=== PATIENT | female | born 1955 | race Caucasian/White ===

== ENCOUNTER 2020-05-13 12:42 | Outpatient (CLI) | payer OTHER, SELFPAY ==
--- NOTE | ~2020-05-13 | CT_ITS ---
EXAMINATION: CT abdomen pelvis wo con DATE: 05/13/2020 13:25 INDICATION: Right lower quadrant abdominal pain for 3 weeks. History of diverticulosis. TECHNIQUE: Computed tomography (CT) of the abdomen and pelvis was performed without intravenous contr ast. Automated exposure control and iterative reconstruction technique were employed. Exam dose: 133 0.96 mGy-cm total exam DLP. COMPARISON: 07/19/2014 CT abdomen pelvis FINDINGS: The lung bases are clear. Normal heart size. No pericardial or pleural effusion. Very small sliding hiatal hernia. The liver, gallbladder, bile ducts, pancreas, pancreatic duct and spleen are unremarkable. Normal morphology of the adrenal glands. Hypoattenuating lesion at lower pole of right kidney measures approximately 12 mm versus 9 mm on 07/04 Exophytic up to 5.5 cm upper pole right renal cyst, increased from 3.5 cm size on 07/19/2014. 2.6 cm anterior upper pole renal cyst, increased in size from 1.2 cm on 07/19/2014. Suggestion of add itional 2 or 3 smaller left renal cysts. No urinary tract calculus or hydroureteronephrosis. The urinary bladder, uterus and adnexal areas are unremarkable. Normal caliber of the abdominal aorta. No intraperitoneal or retroperitoneal or pelvic mass lesion or adenopathy or ascites. There are numerous diverticula of the left and right colon; no CT evidence of diverticulitis. Normal appendix. No evidence of appendicitis. Included skeletal structures are unremarkable. IMPRESSION: Very small sliding hiatal hernia Bilateral renal cysts, increased in size since 07/19/2014 Diverticulosis of left and right colon; no CT diverticulitis Normal appendix Reviewed, dictated and finalized at [facility]. Reviewed, dictated and finalized at location A.
== END 2020-05-13 12:43 | disposition home or self-care (01) ==
LOC: ANHIMG 12:45
PROVIDERS: PCP Family Medicine; Visit Provider Family Medicine
DX: R10.31 Right lower quadrant pain (principal); R19.8 Other specified symptoms and signs involving the digestive system and abdomen; K57.90 Diverticulosis of intestine, part unspecified, without perforation or abscess without bleeding; N28.1 Cyst of kidney, acquired
CPT/HCPCS: 74176

== ENCOUNTER 2021-04-27 09:40 | Emergency (ER) | payer OTHER, SELFPAY ==
--- NOTE | ~2021-04-27 | CT_ITS ---
EXAMINATION: CT BRAIN W/O DATE: 04/27/2021 11:12 INDICATION: Status post fall. Headache. TECHNIQUE: Computed tomography (CT) of the head was performed without intravenous contrast. The dose- length product was 605.33 mGy-cm. The mA was adjusted according to patient size. Iterative reconstruc tion technique was employed. COMPARISON: CT dated 04/03/2015 FINDINGS: Normal brain parenchymal volume for age. Normal alejandre-white differentiation. No acute intrac ranial hemorrhage, infarction, mass or mass effect. There are scattered mild periventricular and subc ortical white matter changes, most likely related to small vessel ischemic disease (microangiopathy). No depressed skull fractures. No ventriculomegaly or midline shift. Midline sagittal images demonstrate a normal corpus callosum, c raniovertebral junction and sella turcica. Basilar cisterns are patent. Paranasal sinuses and mastoids are pneumatized. No depressed skull fractures. IMPRESSION: 1. No acute intracranial abnormality. Reviewed, dictated and finalized at location [facility].
--- NOTE | ~2021-04-27 | XR_ITS ---
EXAMINATION: XR chest 2V 04/27/2021 11:22 INDICATION: Left-sided chest pain PROCEDURE: 2 view chest COMPARISON: Comparison to multiple prior studies sequentially, with oldest reviewed study dated 11/2004. FINDINGS: The lungs are clear. The cardiomediastinal silhouette is within normal limits. There are no pleural effusions. There is no pneumothorax suspected. IMPRESSION: 1: NO ACUTE CARDIOPULMONARY DISEASE. Reviewed, dictated and finalized at location A.
--- NOTE | ~2021-04-27 | XR_ITS ---
XR knee RT 3V 04/27/2021 11:22 INDICATION: Right knee pain PROCEDURE: 3 views right knee COMPARISON: No prior studies for comparison. FINDINGS: Fracture, dislocation or subluxation is not identified. No significant joint effusion. The soft tissues appear within normal limits. No foreign bodies are identified. IMPRESSION: 1: NO ACUTE BONE OR JOINT ABNORMALITY IDENTIFIED. Reviewed, dictated and finalized at location A.
[2021-04-27 10:14] VITALS: BP 144/93; PULSE 81; RESP 18; TEMP 36.8; O2SAT 96
--- NOTE | 2021-04-27 12:15 | ED.FALL ---
HPI - Fall General Chief Complaint: Fall Stated Complaint: Fall Time Seen by Provider: 04/27/21 10:30 History of Present Illness HPI Narrative: Patient presents after a mechanical fall 2 days ago. Patient reports she was walking around her house when she tripped over a garden closing up against the wall. She fell to the ground and had the end of the car into ran into her ribs and she fell on her right knee and struck her head. She denies any loss of consciousness. She has been using rest ice compression elevation at home however her pain got progressively worse so she wanted to come in for evaluation. She reports she has a headache is achy, constant. She also reports left-sided chest pain is achy, constant, worse with deep inspiration, no radiation. She also reports right knee pain worse with walking around. Denies any focal numbness or weakness she denies any changes in vision or hearing. Related Data Allergies Allergy/AdvReac Type Severity Reaction Status Date / Time bacitracin Allergy Severe hives Verified 04/27/21 10:21 neomycin Allergy Severe hives Verified 04/27/21 10:21 polymyxin B Allergy Severe hives Verified 04/27/21 10:21 pravastatin Allergy Unknown Nausea Verified 04/27/21 10:21 Sulfa (Sulfonamide Allergy Unknown doesn't Verified 04/27/21 10:21 Antibiotics) remember reaction Review of Systems Review of Systems: CONSTITUTIONAL: Denies fever, chills, or sweats. EYES: Denies visual changes, redness, or discharge. ENT: Denies rhinorrhea, congestion, sore throat, or otalgia. CARDIOVASCULAR: Denies palpitations, or edema. RESPIRATORY: Denies cough or dyspnea. GASTROINTESTINAL: Denies abdominal pain, nausea, vomiting, or diarrhea. GENITOURINARY: Denies dysuria or hematuria. SKIN: Denies rash or itching. MUSCULOSKELETAL: Denies back pain, or myalgia. NEUROLOGIC: Denies numbness, dizziness, or weakness. PSYCHIATRIC: Denies anxiety or depression. All systems reviewed & are unremarkable except as noted in HPI and below PMFSH Past Medical History Medical History (Updated 04/27/21 @ 12:20 by Héctor Wylie MD) Cor pulmonale (chronic) Cyst of kidney, acquired Esophageal reflux FH: colon polyps Heart failure, unspecified History of DVT (deep vein thrombosis) History of pulmonary embolism 2014,2018 Normal colonoscopy 2018( diverticulosis). fedder/ repeat 10 years Family History Family History Mother Family history of mental disorder Family history of malignant neoplasm of breast in first degree relative Family history of schizophrenia Colon polyp Hypertension Father Family history of cardiovascular disease Grandparent Family history of malignant neoplasm Other Family history of elevated blood lipids Family history of malignant neoplasm of breast Social History Social History Smoking status: Never smoker Alcohol intake: never Exam Narrative: GENERAL: Well-appearing, well-nourished, and in no acute distress. HEAD: Normocephalic, atraumatic. EYES: PERRLA and EOMI. ENT: Nares clear, no rhinorrhea or epistaxis. Mucous membranes moist. NECK: Supple. No masses. No JVD CHEST: Clear to auscultation. No respiratory distress. No wheezes rales or rhonchi. Moderate tenderness on the left chest wall HEART: Regular rate and rhythm. No murmur heard. Normal peripheral pulses. ABDOMEN: Soft, nontender, nondistended, normal active bowel sounds. EXTREMITIES: Normal range of motion. Ecchymosis noted on the right knee with mild edema no focal bony tenderness SKIN: Warm, dry, no rash. NEURO: No focal deficits. Alert and oriented x3. PSYCH: Normal mood and affect. Course Reevaluation(s) Reevaluation #1: Patient resting comfortably imaging reviewed with patient. Patient comfortable with outpatient monitoring Date: 04/27/21 Time: 12:17 Vital Signs Vital signs: Vital Signs Temperature 36.8 C
[2021-04-27 12:30] VITALS: BP 133/83; PULSE 60; RESP 18; O2SAT 99
[2021-04-27 12:55] VITALS: BP 130/86; PULSE 80; RESP 16; O2SAT 99
== END 2021-04-27 12:56 | disposition home or self-care (01) ==
PROVIDERS: Emergency Provider Emergency Medicine; PCP Family Medicine
DX: S09.90XA Unspecified injury of head, initial encounter (principal); S20.212A Contusion of left front wall of thorax, initial encounter; R07.9 Chest pain, unspecified; M25.561 Pain in right knee; W01.0XXA Fall on same level from slipping, tripping and stumbling without subsequent striking against object, initial encounter
CPT/HCPCS: 70450; 71046; 73562; 99284

== ENCOUNTER 2022-03-20 09:00 | Outpatient (CLI) | payer OTHER, SELFPAY ==
--- NOTE | ~2022-03-20 | MM_ITS ---
EXAMINATION: MM screening mercedes BI w nixon HISTORY: Screening mammogram TECHNIQUE: Craniocaudal and mediolateral oblique 3-D tomosynthesis images were obtained and synthetic 2-D images were generated. CAD analysis was submitted and interpreted. COMPARISON: 06/03/2019, 04/17/2018, 08/14/2016 bilateral screening mammogram examinations BREAST PARENCHYMAL COMPOSITION: There are scattered areas of fibroglandular density. FINDINGS: Scattered benign calcifications. There is no evidence of suspicious mass, calcification, or architectural distortion to suggest malignancy in either breast. There has been no suspicious interv al change. IMPRESSION: 1. No mammographic evidence of malignancy. 2. Recommend routine screening mammography in one year. BI-RADS Category 2: Benign finding(s). Reviewed, dictated and finalized at location A.
== END 2022-03-20 09:01 | disposition home or self-care (01) ==
PROVIDERS: PCP Family Medicine; Visit Provider Family Medicine
DX: Z12.31 Encounter for screening mammogram for malignant neoplasm of breast (principal)
CPT/HCPCS: 77063; 77067

== ENCOUNTER 2023-04-08 15:07 | Outpatient (CLI) | payer MEDICARE, SELFPAY ==
--- NOTE | ~2023-04-08 | DEXA_ITS ---
Bone Density Report Name: JANET GARCIA Age: 67 Sex: Female Ethnicity: White Date of : 1955 Indication: postmenopausal; screening for osteoporosis; Referring Provider: LILA ANGUIANO Study: Bone densitometry was performed. Exam Date: April 08, 2023 Accession number: [id number] Bone Density: Region BMD T-score Z-score Classification AP Spine(L1-L4) 0.932 -1.0 0.8 Normal Femoral Neck (Left) 0.681 -1.5 0.0 Osteopenia Total Hip (Left) 0.813 -1.1 0.2 Osteopenia Femoral Neck (Right) 0.657 -1.7 -0.2 Osteopenia Total Hip (Right) 0.780 -1.3 -0.1 Osteopenia Total Hip Mean 0.796 -1.2 0.1 Osteopenia World Health Organization criteria for BMD impression classify patients as: Normal (T-score at or above -1.0), Osteopenia (T-score between -1.0 and -2.5), or Osteoporosis (T-score at or below -2.5). 10-year Fracture Risk(1): Major Osteoporotic Fracture 8.9% Hip Fracture 1.1% Reported Risk Factors: [place] (), Neck BMD=0.657, BMI=36.3 (1) FRAX(R) Version 3.08. Fracture probability calculated for an untreated patient. Fracture probability may be lower if the patient has received treatment. Clinical Information Provided by Patient: Patient maximum height was 64.25 Menopause Age: 52 No regular weight bearing exercise Drinks caffeinated beverages Onset of menses at age 15 Number of children 0 Impression: The patient has low bone mass, based on the Right Femoral Neck T-score. The patient has an estimated ten-year risk of hip fracture of 1.1% and an estimated ten-year risk of major fracture of 8.9%, based on the WHO FRAX algorithm. Discussion: BONE DENSITY IS LOW AT ONE OR MORE SKELETAL SITES. This patient's lowest T-score is low at one or more skeletal sites. It meets the World Health Organization's (WHO) criteria for ?low bone mass? (T-score between -1.0 and -2.5). The patient's 10-year risk of fracture as calculated by FRAX is less than the threshold where pharmacological therapy is recommended by the National Osteoporosis Foundation (NOF). However, all treatment decisions require clinical judgment and consideration of individual patient factors, including patient preferences, comorbidities, previous drug use, risk factors not captured in the FRAX model (e.g., frailty, falls, vitamin D deficiency, increased bone turnover, interval significant decline in bone density) and possible under or overestimation of fracture risk by FRAX. The patient should follow a healthful lifestyle (good nutrition with adequate calcium and vitamin D, and appropriate weight-bearing exercise). Follow-Up: Consider repeating this study in 2 to 3 years to reassess this patient's status, or sooner if there is some new clinical indication. Reported by: HERNAN on 04/08/2023 3:55:00 PM.
--- NOTE | ~2023-04-08 | MM_ITS ---
EXAMINATION: MM screening mercedes BI w nixon HISTORY: Screening mammogram TECHNIQUE: Craniocaudal and mediolateral oblique 3-D tomosynthesis images were obtained and synthetic 2-D images were generated. CAD analysis was submitted and interpreted. COMPARISON: 03/20/2022, 06/03/2019 bilateral screening mammogram examinations BREAST PARENCHYMAL COMPOSITION: There are scattered areas of fibroglandular density. FINDINGS: Scattered bilateral benign calcifications are again present. There is no evidence of suspic ious mass, calcification, or architectural distortion to suggest malignancy in either breast. There h as been no suspicious interval change. IMPRESSION: 1. No mammographic evidence of malignancy. 2. Recommend routine screening mammography in one year. BI-RADS Category 2: Benign finding(s). Reviewed, dictated and finalized at location A.
== END 2023-04-08 15:08 | disposition home or self-care (01) ==
PROVIDERS: PCP Family Medicine; Visit Provider Physician Assistant
DX: Z12.31 Encounter for screening mammogram for malignant neoplasm of breast (principal); Z78.0 Asymptomatic menopausal state; M85.852 Other specified disorders of bone density and structure, left thigh; M85.851 Other specified disorders of bone density and structure, right thigh
CPT/HCPCS: 77063; 77067; 77080

== ENCOUNTER → 2023-05-08 11:01 | Outpatient (CLI) | payer MEDICARE, SELFPAY ==
--- NOTE | ~2023-05-08 | XR_ITS ---
XR finger 1st LT min 2V DATE: 05/08/2023 11:14 INDICATION: Left thumb pain. Injury in January. TECHNIQUE: 4 views COMPARISON: None FINDINGS: There is mild osteoarthritis at the first carpometacarpal joint. No fracture, dislocation, periosteal reaction or bone destruction is detected. IMPRESSION: Mild first carpal metacarpal osteoarthritis Reviewed, dictated and finalized at location [facility].
== END ==
PROVIDERS: PCP Family Medicine; Visit Provider Family Medicine
DX: M79.645 Pain in left finger(s) (principal); M19.042 Primary osteoarthritis, left hand
CPT/HCPCS: 73140

== ENCOUNTER 2023-07-03 13:45 | Outpatient (RCR) | payer MEDICARE, SELFPAY ==
--- NOTE | 2023-05-15 14:30 | OTOPEVAL1 ---
Assessment and note entered by Kip Dinero, LISA/Fanta, CHT Evaluation Information Assessment Status Evaluation Diagnosis de Quervain's tenosynovitis Subjective Information Pt reports initial injury back in January when a metal ball hit the dorsum/radial hand and wrist. She was having persistent pain, so decided to get it examined. X-rays negative. Pain with gross gripping and pinching. Has been having difficulties with household tasks, favoring the right hand and avoiding using the left hand/thumb. Difficulties with doing buttons. 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 Reported Pain Level Pain Score 0: Self Report Additional Pain Score Comments No pain at rest. Pain can get up to 5/10 at worst . Assessment OT Clinical Summary Patient referred to outpatient OT with dx of de Quervain's. She has been experiencing thumb pain since she experienced some trauma to this area a few months ago. Her symptoms are gross thumb soreness, hard to pinpoint exactly the cause. She does have tightness with Oracio's. Overall she is very guarded with using the thumb. Skilled OT indicated to maximize functional left hand use for ADLs. Plan of Care Interventions Therapeutic Exercise,Manual Therapy,Therapeutic Activities,Ultrasound,Paraffin OT Services Indicated Yes Treatment Frequency and 1x/week for 4 weeks Duration These treatments will address the objective and functional deficits as defined above. The patient will be advanced safely and appropriately in order for the patient to progress towards his/her prior level of function. Additional exercises will be introduced and as well as a comprehensive home exercise program upon discharge, if needed, ?to ensure carryover of functional gains achieved in the clinic. This treatment plan has been reviewed and agreement upon by the patient.
--- NOTE | 2023-05-15 14:30 | OPREHPOC ---
Outpatient Therapy Plan of Care This is a Multidisciplinary Plan of Care that may contain components documented by all disciplines (PT, OT, and ST.) OT Problem 1 OT Problem #1 Knowledge Deficit OT Goal 1 Goal Patient to be independent with instructed materials. OT Problem 2 OT Problem #2 Pain OT Goal 1 Goal Patient to report pain to 2/10 or less at worst OT Problem 3 OT Problem #3 Impaired Strength OT Goal 1 Goal Increase left housing officer strength to 40 lbs. OT Goal 2 Goal Increase left lateral and palmar pinch strength to 2 lbs.
--- NOTE | 2023-07-03 14:19 | OTOPDC ---
Assessment and note entered by Kip Dinero, LISA/Fanta, CHT Discharge Notification 07/03/23 OT Clinical Summary Patient referred to OT with dx of left de Quervain 's tenosynovitis. She progressed to having no pain and was working on strengthening HEP. She has not returned to therapy since 06/03/23 and will be discharged at this time.
== END 2023-07-03 16:12 | disposition home or self-care (01) ==
LOC: ANHGOSHOT 13:45
PROVIDERS: PCP Family Medicine; Visit Provider Family Medicine
DX: M65.4 Radial styloid tenosynovitis [de Quervain] (principal)
CPT/HCPCS: 97018; 97110; 97140; 97165

== ENCOUNTER → 2023-09-18 09:16 | Outpatient (CLI) | payer MEDICARE, SELFPAY ==
--- NOTE | ~2023-09-18 | MMUS_ITS ---
EXAMINATION: MM diagnostic mercedes BI w nixon, US breast BI limited HISTORY: Palpable lumps of the right breast at the 3:00 location near the nipple in the left breast a t the 9:00 location near the nipple. TECHNIQUE: Craniocaudal, mediolateral, and mediolateral oblique 3-D tomosynthesis images of the breas ts were performed and synthetic 2-D images were generated. CAD analysis was submitted and interpreted . High resolution limited bilateral breast ultrasound was performed. COMPARISON: 04/08/2023, 03/20/2022, 06/03/2019 FINDINGS: MAMMOGRAPHIC FINDINGS: Left breast: There is a chronic 5 mm mass of the slightly inner left breast at the 9:00 location near the nipple. No suspicious interval change is identified. Right breast: No suspicious mass, calcification, or architectural distortion are identified to sugges t malignancy. There has been no suspicious interval change. No mammographic correlate is identified f or the reported palpable abnormality of the right breast. ULTRASOUND: Left breast: There is a 5 mm x 3 mm oval, circumscribed, parallel, hypoechoic mass with no posterior features or internal vascularity at the 9:00 location 1 cm from the nipple. The area of palpable conc la. Right breast: No suspicious cystic or solid mass is identified in the area of the palpable abnormalit y. IMPRESSION: 1. Probably benign left breast mass near the nipple and no mammographic or sonographic correlate for the reported palpable right breast lump. 2. Recommend 6 month follow-up left diagnostic mammogram and ultrasound for left breast lump and cont inued clinical follow-up for the right breast lump. BI-RADS category 3, probably benign findings. Reviewed, dictated and finalized at location A. ROLLER IMPRESSION: 1. Probably benign left breast mass near the nipple and no mammographic or sono graphic correlate for the reported palpable right breast lump. 2. Recommend 6 month follow-up left diagnostic mammogram and ultrasound for lef t breast lump and continued clinical follow-up for the right breast lump. BI-RADS category 3, probably benign findings.
== END ==
PROVIDERS: PCP Family Medicine; Visit Provider Physician Assistant
DX: N64.59 Other signs and symptoms in breast (principal); R92.8 Other abnormal and inconclusive findings on diagnostic imaging of breast
CPT/HCPCS: 76642; 77062; 77066; G0279

== ENCOUNTER 2024-04-20 09:17 | Outpatient (CLI) | payer MEDICARE, SELFPAY ==
--- NOTE | ~2024-04-20 | MMUS_ITS ---
EXAMINATION: MM diagnostic mercedes LT w nixon, US breast LT limited HISTORY: Six-month follow-up left breast lesion TECHNIQUE: 3-D tomosynthesis images of the left breast were performed and synthetic 2-D images were g enerated. CAD analysis was submitted and interpreted. High resolution limited left breast ultrasound was performed. COMPARISON: 09/18/2023, 04/08/2023 BREAST PARENCHYMAL COMPOSITION:Not Dense. There are scattered areas of fibroglandular density. FINDINGS: MAMMOGRAPHIC FINDINGS: Parenchymal pattern of the left breast is unchanged. 2 small nodular opacities at the lower, inner le ft breast are unchanged. Stable benign calcifications, especially the lower, inner left breast. Stabl e benign lymph node at the upper, outer left breast. No suspicious abnormality seen in the left breas t. ULTRASOUND: At the 9:00 position left breast, near the nipple, there are 2 adjacent subcentimeter hypoechoic mass es, measuring up to 6 mm in maximum diameter, relatively well-circumscribed, with posterior through t ransmission. These overall wider than tall. IMPRESSION: 2 adjacent subcentimeter hypoechoic masses, possibly focally dilated duct, to a position left breast . Findings are not increased in size from prior exam, somewhat more conspicuous and better delineated as compared to prior exam. These remain probably benign. Additional six-month follow-up ultrasound r ecommended to reassess. BI-RADS category 3, probably benign findings. Reviewed, dictated and finalized at location . IMPRESSION: 2 adjacent subcentimeter hypoechoic masses, possibly focally dilated duct, to a position left breast. Findings are not increased in size from prior exam, cathy ewhat more conspicuous and better delineated as compared to prior exam. These r emain probably benign. Additional six-month follow-up ultrasound recommended to reassess. BI-RADS category 3, probably benign findings.
== END 2024-04-20 09:18 | disposition home or self-care (01) ==
LOC: MICIMG 09:18
PROVIDERS: PCP Family Medicine; Visit Provider Student in an Organized Health Care Education/Training Program
DX: N63.0 Unspecified lump in unspecified breast (principal); R92.8 Other abnormal and inconclusive findings on diagnostic imaging of breast
CPT/HCPCS: 76642; 77061; 77065; G0279

== ENCOUNTER 2024-06-24 13:41 | Outpatient (CLI) | payer MEDICARE, SELFPAY ==
--- NOTE | ~2024-06-24 | CT_ITS ---
EXAMINATION: CT abdomen pelvis wo con DATE: 06/24/2024 13:54 INDICATION: Right lower quadrant abdominal pain. TECHNIQUE: Computed tomography (CT) of the abdomen and pelvis was performed without intravenous contr ast. Automated exposure control and iterative reconstruction technique were employed. The dose-length product was 1051.37 mGy-cm. COMPARISON: None FINDINGS: Minimal dependent atelectasis in the bilateral lower lobes. Heart size normal. No pericardial or pleu ral effusion. Very small sliding-type hernia. Liver, gallbladder, spleen, pancreas and bilateral adre nal glands are normal. Bilateral renal cysts the largest at the upper pole the right kidney measuring 7.6 cm and the next largest at the upper pole the left kidney measuring 4.2 cm. There is extensive c olonic diverticulosis with a descending and sigmoid colon predominance and without adjacent inflammat ory change to suggest diverticulitis. Small bowel and appendix are normal. Bladder, anteverted uteru s and bilateral adnexa are unremarkable. No free intraperitoneal gas or fluid. No pathologically enla rged abdominal or pelvic lymphadenopathy. Small fat-containing umbilical hernia. Mild lumbar and lowe r thoracic spondylosis. IMPRESSION: 1. No acute intra-abdominal/pelvic process. 2. Very small sliding-type hiatal hernia. 3. Diverticulosis. Reviewed, dictated and finalized at location B. 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
== END 2024-06-24 13:42 | disposition home or self-care (01) ==
PROVIDERS: PCP Family Medicine; Visit Provider Family Medicine
DX: R10.31 Right lower quadrant pain (principal); K57.30 Diverticulosis of large intestine without perforation or abscess without bleeding; K44.9 Diaphragmatic hernia without obstruction or gangrene
CPT/HCPCS: 74176

== ENCOUNTER 2024-07-16 12:48 | Outpatient (CLI) | payer MEDICARE, SELFPAY ==
--- NOTE | 2024-07-16 12:50 | ECHO_ITS ---
Patient Info Name: Naa Peacock Age: 68 years : 1955 Gender: Female Ht: 66 in Wt: 221 lbs BSA: 2.20 m2 HR: 70 bpm BP: 140 / 89 mmHg Heart Rhythm: Sinus Rhythm Technical Quality: Good Exam Date: 07/16/2024 1:45 PM Exam Location: Echo Lab Patient Status: Outpatient Admit Date: 07/16/2024 Staff Ordering Physician: Frederic Aldana APRN Sole Buffer: Hilda Dunbar RDCS Attending Provider: Frederic Aldana APRN Referring Physician: Katya ROMANO; Exam Type: CA echo doppler color flow Study Info Indications R06.02 - Shortness of breath Complete two-dimensional, color flow and Doppler transthoracic echocardiogram is performed. Summary 1. Complete two-dimensional, color flow and Doppler transthoracic echocardiogram is performed. 2. Left ventricular chamber dimension is normal. 3. Left ventricular systolic function is normal, estimated at 60-65%. 4. The left ventricular diastolic function is grade II diastolic dysfunction. 5. E/e' 6 is not elevated. 6. There is mild aortic valve sclerosis. 7. There is trace mitral valve regurgitation. 8. There is trace tricuspid valve regurgitation. 9. No pulmonary hypertension, estimated pulmonary arterial systolic pressure is 21 mmHg. Left Ventricle E/e' 6 is not elevated. Left ventricular chamber dimension is normal. Left ventricular systolic function is normal, estimated at 60-65%. The left ventricular diastolic function is grade II diastolic dysfunction. Right Ventricle Right ventricular systolic function is normal and with normal TAPSE 2.1 cm. Right ventricular chamber dimension is normal. Left Atria Left atrial chamber dimension is normal. Right Atria Right atrial chamber dimension is normal. Aortic Valve The aortic valve is trileaflet. There is mild aortic valve sclerosis. There is no aortic valve stenosis. There is no aortic valve regurgitation. Pulmonic Valve There is no pulmonic regurgitation. Mitral Valve There is no mitral valve stenosis. There is trace mitral valve regurgitation. Tricuspid Valve There is trace tricuspid valve regurgitation. No pulmonary hypertension, estimated pulmonary arterial systolic pressure is 21 mmHg. Pericardium/Pleural There is no pericardial effusion. Inferior Vena Cava Normal inferior vena cava with >50% collapse upon inspiration consistent with normal right atrial pressure, 5 mmHg. Aorta The aortic root size at the sinus of Valsalva is normal. Left Ventricular Outflow Tract Name Value Normal LVOT 2D LVOT Diameter 2.0 cm LVOT Doppler LVOT Peak Gradient 6 mmHg LVOT Mean Gradient 3 mmHg LVOT VTI 25 cm LVOT VTI/AV VTI Ratio 0.7 LVOT Stroke Volume 80 ml LVOT CO 5.4 l/min LVOT CI 2.5 l/min/m2 Pulmonic Valve Name Value Normal RVOT Doppler RVOT Peak Gradient 3 mmHg PV Doppler PV Peak Gradient 4 mmHg Mitral Valve Name Value Normal MV Doppler MV Decel Bosque 264 cm/s2 MV PHT 65 ms MV Area (PHT) 3.4 cm2 4.0-5.0 MV Diastolic Function MV E Peak Velocity 59 cm/s MV A Peak Velocity 57 cm/s MV E/A 1.0 MV Decel Time 224 ms MV Annular TDI MV E/e' (Septal) 7.1 <=8.0 MV E/e' (Lateral) 5.7 <=8.0 MV E/e' (Average) 6.4 Tricuspid Valve Name Value Normal TV Regurgitation Doppler TR Peak Velocity 197 cm/s TR Peak Gradient 10 mmHg Estimated PAP/RSVP RA Pressure 5 mmHg <=5 PA Systolic Pressure 21 mmHg <36 RV Systolic Pressure 21 mmHg <36 Aorta Name Value Normal Ascending Aorta Ao Root Diameter (MM) 3.3 cm Ao Root Diam Index (MM) 1.5 cm/m2 Aortic Valve Name Value Normal AV Doppler AV Peak Velocity 161 cm/s AV Peak Gradient 10 mmHg AV Mean Gradient 6 mmHg AV VTI 35 cm AV Area (Cont Eq VTI) 2.3 cm2 >=3.0 AV Area (Cont Eq John) 2.5 cm2 AV Regurgitation 2D LVOT Area 3.2 cm2 Ventricles Name Value Normal LV Dimensions 2D/MM IVS Diastolic Thickness (2D) 1.0 cm 0.6-1.0 LVID Diastole (2D) 3.3 cm 3.8-5.2 LVIW Diastolic Thickness (2D) 0.9 cm 0.6-0.9 LVID Systole (2D) 2.2 cm 2.2-3.5 LVOT Diameter 2.0 cm LV Mass (2D Cubed) 92.90 g 67.00-162.00 LV Mass Index (2D Cubed) 42 g/m2 43-95 Relative Wall Thickness (2D) 0.56 LV Fractional Shortening/Ejection Fraction 2D/MM LV Fractional Shortening (2D) 33 % 27-45 LV EF (2D Teicholz) 63 % 54-74 LV Diastolic Volume (4C MOD) 66 ml LV EF (4C MOD) 75 % LV Diastolic Volume (2C MOD) 54 ml LV EF (2C MOD) 72 % LV Diastolic Volume (BP MOD) 61 ml 46-106 LV Diastolic Volume Index (BP MOD) 28 ml/m2 29-61 LV Systolic Volume (BP MOD) 16 ml 14-42 LV Systolic Volume Index (BP MOD) 7 ml/m2 8-24 LV EF (BP MOD) 74 % 54-74 LV Diastolic Length (4C) 8.2 cm LV Systolic Length (4C) 6.0 cm LV Stroke Volume (4C MOD) 50 ml Atria Name Value Normal LA Dimensions LA Dimension (MM) 4.0 cm 2.7-3.8 LA Volume (4C A-L) 34 ml LA Volume (BP A-L) 36 ml RA Dimensions RA Area (4C) 17.6 cm2 <=18.0 Report Signatures
--- NOTE | 2024-07-19 19:19 | P.PCNPFT_ITS ---
PFT Procedure Performed PFT Procedure Performed Spirometry with Pre/Post Bronchodilator Plethysmography (Lung Vol) Diffusing Cap (DLCO) Flow Vol Loop PFT Interpretation DOS: 07/16/2024 REQUESTING: Frederic Aldana APRN REASON FOR TESTING: Shortness of breath PULMONARY FUNCTION TESTS Results are reliable and reproducible. Repeatability of spirometry FEV1 maneuver pre and post bronchodilator is Grade A. Spirometry: The pre-bronchodilator FEV1 is 3.07 L, 123%, normal. The pre- bronchodilator FVC is 3.75 L, 117%, normal. The FEV1/FVC ratio is 82%. After bronchodilator, the FEV1 is 3.08 L, 123%, no change. The post-bronchodilator FVC is 3.63 L, 113%, -3%. The FEV1/FVC ratio is 85%. Lung volumes: The total lung capacity is 6.04 L, 112%. The residual volume is 2.27 L, 103%. The RV/TLC is 38 per. FRC is 2.47 L, 80%. Airway resistance is normal. Diffusion: DLCO is 25, 115%. The DLCO/VA is 4.23, 99%. Flow volume loop: The flow volume loop is normal. . IMPRESSION: Normal spirometry, no response to bronchodilator, normal lung volumes, normal diffusion. Lack of response to bronchodilator should not preclude use if clinically indicated. No prior studies to compare. Tereza Baugh MD
== END 2024-07-16 12:49 | disposition home or self-care (01) ==
PROVIDERS: PCP Family Medicine; Visit Provider Student in an Organized Health Care Education/Training Program
DX: R06.02 Shortness of breath (principal)
CPT/HCPCS: 93306; 94060; 94726; 94729

== ENCOUNTER 2024-10-21 09:54 | Outpatient (CLI) | payer MEDICARE, SELFPAY ==
--- NOTE | ~2024-10-21 | US_ITS ---
US breast LT limited 10/21/2024 10:10 Indication: Follow-up probable benign left breast masses Procedure: High-resolution Limited ultrasound of the left breast Comparison: 04/20/2024 Findings: There are 2 adjacent hypoechoic 4 mm masses without significant change from prior examinati on line for differences of technique. There is no internal vascularity or significant posterior featu res. Impression: 1: Stable likely benign hypoechoic 4 mm masses in the left breast at 9:00, 1 cm from the nipple. BI-RADS CATEGORY 3-PROBABLY BENIGN FINDING RECOMMENDATION: Six-month follow-up diagnostic bilateral mammogram and Limited left breast ultrasound recommended. Reviewed, dictated and finalized at location B. Impression: 1: Stable likely benign hypoechoic 4 mm masses in the left breast at 9:00, 1 cm from the nipple. BI-RADS CATEGORY 3-PROBABLY BENIGN FINDING RECOMMENDATION: Six-month follow-up diagnostic bilateral mammogram and Limited left breast ultrasound recommended.
== END 2024-10-21 09:55 | disposition home or self-care (01) ==
LOC: MICIMG 09:57
PROVIDERS: PCP Family Medicine; Visit Provider Student in an Organized Health Care Education/Training Program
DX: R92.8 Other abnormal and inconclusive findings on diagnostic imaging of breast (principal)
CPT/HCPCS: 76642

== ENCOUNTER 2025-06-07 08:13 | Outpatient (CLI) | payer MEDICARE, SELFPAY ==
--- NOTE | ~2025-06-07 | US_ITS ---
RIGHT MAMMOGRAM FINDINGS: The focal asymmetry of concern in the lateral central at middle third within the right breast persisted as a mass containing several foci of calcifications. Ultrasound was performed for further evaluation. RIGHT BREAST ULTRASOUND FINDINGS: Targeted evaluation of lateral central right breast was completed. There is a 0.6 x 0.6 x 0.4 cm solid hypoechoic mass with internal vascularity and irregular margins at 9:00, 4 cm from the nipple location. The lesion correlates to the area of mammographic finding. IMPRESSION: 1. Suspicious right breast mass at 9:00 location that correlates to mammography finding. Recommend biopsy. 2. Probable benign left breast finding is unchanged RECOMMENDATION: 1. Ultrasound-guided core needle biopsy right breast mass at 9:00 location. 2. Continued left breast surveillance with 6 month follow-up left breast ultrasound. BI-RADS 4, SUSPICIOUS Reviewed, dictated and finalized at location C. LEAD
--- NOTE | ~2025-06-07 | MMUS_ITS ---
EXAMINATION: MM diagnostic mercedes BI w nixon, US breast LT limited INDICATION: 69-year old female; BI-RADS 3, short-term follow-up probably benign left breast findings. COMPARISON: 04/20/2024 through 06/03/2019 TECHNIQUE: Digital breast tomosynthesis bilateral True lateral, CC and MLO views with spot compression views of the LEFT breast were obtained with computer-aided detection to assist in interpretation of the study. MAMMOGRAM FINDINGS: There are scattered areas of fibroglandular density. There is a focal asymmetry containing several foci of calcifications seen in the lateral central in middle third of the right breast. No other suspicious mass, calcification or architectural distortion to suggest malignancy in the left breast. LEFT BREAST ULTRASOUND FINDINGS: Targeted evaluation of the area of concern was completed. 0.3 x 0.7 x 0.3 cm cluster of cysts at 9:00 location 1 cm from the nipple redemonstrated is Unchanged. IMPRESSION: 1. Incomplete evaluation of right breast focal asymmetry. This lesion was identified after the patient left the department. 2. Probable Benign LEFT breast finding is unchanged. RECOMMENDATION: Right diagnostic mammography with appropriate spot compression views and correlate to right breast ultrasound. Continue left breast surveillance with 6 month follow-up left breast ultrasound. BI-RADS Category 0: Incomplete: Needs additional imaging evaluation. Reviewed, dictated and finalized at location C. MIC ARTIST IMPRESSION: 1. Incomplete evaluation of right breast focal asymmetry. This lesion was ident ified after the patient left the department. 2. Probable Benign LEFT breast finding is unchanged. RECOMMENDATION: Right diagnostic mammography with appropriate spot compression views and correl ate to right breast ultrasound. Continue left breast surveillance with 6 month follow-up left breast ultrasound . BI-RADS Category 0: Incomplete: Needs additional imaging evaluation.
== END 2025-06-07 08:14 | disposition home or self-care (01) ==
LOC: MICIMG 08:14
PROVIDERS: PCP Family Medicine; Visit Provider Family Medicine
DX: R92.8 Other abnormal and inconclusive findings on diagnostic imaging of breast (principal)
CPT/HCPCS: 76642; 77062; 77066; G0279

== ENCOUNTER 2025-06-08 01:00 | Outpatient (CLI) | payer MEDICARE, SELFPAY ==
--- NOTE | ~2025-06-08 | US_ITS ---
RIGHT MAMMOGRAM FINDINGS: The focal asymmetry of concern in the lateral central at middle third within the right breast persisted as a mass containing several foci of calcifications. Ultrasound was performed for further evaluation. RIGHT BREAST ULTRASOUND FINDINGS: Targeted evaluation of lateral central right breast was completed. There is a 0.6 x 0.6 x 0.4 cm solid hypoechoic mass with internal vascularity and irregular margins at 9:00, 4 cm from the nipple location. The lesion correlates to the area of mammographic finding. IMPRESSION: 1. Suspicious right breast mass at 9:00 location that correlates to mammography finding. Recommend biopsy. 2. Probable benign left breast finding is unchanged RECOMMENDATION: 1. Ultrasound-guided core needle biopsy right breast mass at 9:00 location. 2. Continued left breast surveillance with 6 month follow-up left breast ultrasound. BI-RADS 4, SUSPICIOUS Reviewed, dictated and finalized at location C. ING LOT CHAUFFEUR IMPRESSION: 1. Suspicious right breast mass at 9:00 location that correlates to mammography finding. Recommend biopsy. 2. Probable benign left breast finding is unchanged RECOMMENDATION: 1. Ultrasound-guided core needle biopsy right breast mass at 9:00 location. 2. Continued left breast surveillance with 6 month follow-up left breast ultras ound. BI-RADS 4, SUSPICIOUS
== END 2025-06-08 01:01 ==
LOC: MICIMG 06-20 12:42
PROVIDERS: PCP Family Medicine; Visit Provider Family Medicine
DX: R92.8 Other abnormal and inconclusive findings on diagnostic imaging of breast (principal)
CPT/HCPCS: 76642

== ENCOUNTER 2025-06-20 09:17 | Outpatient (CLI) | payer MEDICARE, SELFPAY ==
--- NOTE | ~2025-06-20 | MMUS_ITS ---
PROCEDURE: US breast biopsy RT w image, MM post biopsy diagnostic RT CLINICAL HISTORY: 69-year-old female with suspicious right breast mass at 9:00 location presents for ultrasound-guided core needle biopsy procedure. COMPARISON: 06/07/2025 Following informed consent including risks, benefits, and possible complications, the patient was brought to the ultrasound suite. A time-out procedure was performed. A preliminary ultrasound of the right breast was performed, redemonstrating the targeted hypoechoic mass at 9:00, 4 cm FN.. The patient was prepped and draped in the usual sterile fashion. 1% lidocaine was instilled into the subcutaneous tissues. 1% lidocaine without epinephrine was injected into the deep tissues just inferior to the lesion. Approximately 15cc lidocaine was administered. A small skin margarita was made. Multiple core samples were obtained with a 13-gauge vacuum assisted biopsy needle. A post biopsy metal marker was placed at the biopsy site. Postprocedural mammogram of the right breast in craniocaudal and mediolateral projections reveal the post biopsy metal marker in good position. The patient tolerated the procedure well and was without immediate postprocedural complications. IMPRESSION: Successful ultrasound guided biopsy of right breast mass. A post biopsy metal marker was placed at the biopsy site, which is seen on postprocedural mammogram. The patient tolerated the procedure well without immediate postprocedure complications. The patient was given postprocedural instructions and sent home in stable condition. Pathology report pending. Reviewed, dictated and finalized at location B. IX DRIER TENDER IMPRESSION: Successful ultrasound guided biopsy of right breast mass. A post bi opsy metal marker was placed at the biopsy site, which is seen on postprocedura l mammogram. The patient tolerated the procedure well without immediate postprocedure compli cations. The patient was given postprocedural instructions and sent home in sta ble condition. Pathology report pending.
--- NOTE | 2025-06-20 10:35 | S_PTH ---
PATIENT: Naa Hadley LOC: [facility] U#:[id number] AGE/SX: 69/F ROOM: RE06/20/[address]: Noreen Mireles MD : 1955 BED: DIS: 06/20/2025 SPEC #: [id number] RECD: 06/20/25 11:14 STATUS: JOSSUE CASSIDY #: [id number] STACEY: 06/20/25 10:[address]: Noreen Mireles DEPT: [facility] Surgical RECD BY: Petr Bryant Tissues: A - Breast Biopsy Procedures: P63 Hematoxylin and Eosin Stain E-Cadherin Gross and Microscopic Level 4 ER-60 AR-60 MIB-60 HER 2-60 CK 5
== END 2025-06-20 09:18 | disposition home or self-care (01) ==
PROVIDERS: PCP Family Medicine; Visit Provider Family Medicine
DX: R92.8 Other abnormal and inconclusive findings on diagnostic imaging of breast (principal)
CPT/HCPCS: 19083; 77065; 88305; 88342; 88360; A4648

== ENCOUNTER 2025-07-05 09:03 | Outpatient (CLI) | payer MEDICARE, SELFPAY ==
--- NOTE | ~2025-07-05 | MM_ITS ---
PROCEDURE(S): Magseed placement, right breast x 2 INDICATION(S): DCIS COMPARISON(S): Studies dating back to 2023 BREAST PARENCHYMAL COMPOSITION: Dense: The breasts are heterogeneously dense TECHNIQUE/FINDINGS: The decision was made to bracket the lesion. Informed consent was obtained. Under sterile conditions, 1% lidocaine was injected as local anesthetic. With mammographic-guidance, a Magseed device is place in/adjacent to the finding/biopsy marker in question. A second Magseed device was placed in the same manner to bracket the lesion. Postprocedural imaging demonstrates the Magseed to lie in the expected location. No complications occurred. The patient tolerated the procedure well. IMPRESSION: Status post successful preoperative Magseed device placement x 2. Reviewed, dictated and finalized at location B. [employer]
--- NOTE | ~2025-07-05 | MM_ITS ---
PROCEDURE(S): Magseed placement, right breast x 2 INDICATION(S): DCIS COMPARISON(S): Studies dating back to 2023 BREAST PARENCHYMAL COMPOSITION: Dense: The breasts are heterogeneously dense TECHNIQUE/FINDINGS: The decision was made to bracket the lesion. Informed consent was obtained. Under sterile conditions, 1% lidocaine was injected as local anesthetic. With mammographic-guidance, a Magseed device is place in/adjacent to the finding/biopsy marker in question. A second Magseed device was placed in the same manner to bracket the lesion. Postprocedural imaging demonstrates the Magseed to lie in the expected location. No complications occurred. The patient tolerated the procedure well. IMPRESSION: Status post successful preoperative Magseed device placement x 2. Reviewed, dictated and finalized at location B. 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
--- OUTSIDE RECORDS SUMMARY | 2025-07-05 09:25 | XMS_ITS | Encounter Summary ---
Author Organization [facility] Address [address] [place] [address] Care Team Providers Care Hard Candy Spinner Name Role Phone Provider, Abstract Primary Care Provider Unavail able Encounter Details Date Type Department Care Team (Late st Contact Info) Description 12/27/1999 Outpatient Historical [facility] Santi Lockett Social History Tobacco Use Types Packs/Day Years Used Date Smoking Tobacco: Never Assessed Comments Unknown Sex and Gender Information Value Date Recorded Sex Assigned at Not on file Legal Sex Female 4:30 AM [employer] Gender Identity Not on file Sexual Orientation Not on file documented as of this encounter Plan of Treatment Not on file documented as of this encounter Visit Diagnoses Not on filedocumented in this encounter Care Teams Hard Candy Spinner Relationship Specialty Start Date End Date Provider, Abstract NO ADDRESS ON FILE PCP - General 12/11/18 documented as of this encounter
--- OUTSIDE RECORDS SUMMARY | 2025-07-05 09:25 | XMS_ITS | Clinical Summary ---
Author Organization [facility] Address [address] [place] [address] Care Team Providers Care Gas Blender Name Role Phone Provider, Abstract Primary Care Provider Unavail able Allergies Active Allergy Reactions Criticality Noted Date Comments Amoxicillin Hives High 12/11/2018 Iuliz-Ycxfh-Bfocxpb-Pramoxine Rash Low 2018 Sulfur Unknown 12/11/2018 Medications atorvastatin (LIPITOR) 40 mg tablet Take 40 mg by mouth daily. 2 9 Active buPROPion HCl (WELLBUTRIN XL) 300 mg Extended Release 24 hour tablet Take 300 mg by mouth daily. 9 Active FLUoxetine (PROzac) 20 mg tablet Take 20 mg by mouth daily. 1 9 Active omeprazole (PriLOSEC) 40 mg Capsule, Delayed Release(E.C.) Take 40 mg by mouth daily. 9 Active XARELTO 10 mg Tablet Take 10 mg by mouth daily. 9 Active omeprazole (PriLOSEC) 40 mg Capsule, Delayed Release(E.C.) Take 1 Capsule (40 mg) by mouth daily. 90 Capsule 1 05/06/2022 5:22 PM CDT 2 Active ciprofloxacin HCl (CIPRO) 500 mg tablet Take 1 Tablet (500 mg) by mouth every 8 hours. 40 Tablet 2 Active metroNIDAZOLE (FLAGYL) 500 mg tablet Take 1 Tablet (500 mg) by mouth every 8 hours. Alcohol consumption should be avoided during treatment and for 24 hours after last dose. 30 Tablet 2 Active busPIRone (BUSPAR) 5 mg tablet Take 2 Tablets (10 mg) by mouth daily at bedtime. 60 Tablet 5 07/17/2023 2:00 PM MAIL ROOM CLERK 3 Active buPROPion HCL (WELLBUTRIN XL) 300 mg Extended Release 24 hour tablet TAKE ONE TABLET BY MOUTH EVERY MORNING 90 Tablet 3 06/11/2025 11:40 AM MAIL ROOM CLERK 4 Active rivaroxaban (XARELTO) 10 mg Tablet Take 1 Tablet (10 mg) by mouth daily. 90 Tablet 1 03/07/2025 5:45 PM CDT 5 Active atorvastatin (LIPITOR) 40 mg tablet TAKE ONE TABLET BY MOUTH ONCE DAILY 90 Tablet 1 04/13/2025 3:28 PM CDT 5 Active FLUoxetine (PROzac) 20 mg tablet Take 2 Tablets (40 mg) by mouth daily. 180 Tablet 1 03/08/2025 10:45 AM CDT 5 Active busPIRone (BUSPAR) 5 mg tablet Take 2 Tablets (10 mg) by mouth daily at bedtime. 60 Tablet 5 06/11/2025 11:40 AM MAIL ROOM CLERK 5 Active rivaroxaban (Xarelto) 10 mg Tablet Take 1 Tablet (10 mg) by mouth daily. 90 Tablet 1 06/27/2025 2:59 PM MAIL ROOM CLERK 5 Active doxycycline monohydrate 100 mg Tablet Take 1 Tablet (100 mg) by mouth 2 times daily. 20 Tablet 06/28/2025 4:59 PM MAIL ROOM CLERK 5 Active omeprazole (PriLOSEC) 40 mg Capsule, Delayed Release(E.C.) Take 1 Capsule (40 mg) by mouth daily. 90 Capsule 3 06/28/2025 4:59 PM MAIL ROOM CLERK 5 Active ALPRAZolam (XANAX) 0.5 mg tablet Take 0.5-1 Tablets (0.25-0.5 mg) by mouth 2 times daily as needed for anxiety. 30 Tablet 1 06/28/2025 4:59 PM MAIL ROOM CLERK 5 Active busPIRone (BUSPAR) 5 mg tablet Take 2 Tablets (10 mg) by mouth daily at bedtime. 60 Tablet 5 02/13/2025 1:32 PM CDT 5 025 Discontin ued(Reord er) omeprazole (PriLOSEC) 40 mg Capsule, Delayed Release(E.C.) Take 1 Capsule (40 mg) by mouth daily. NEEDS APPOINTMENT FOR FURTHER REFILLS. 90 Capsule 04/13/2025 3:28 PM CDT 5 025 Discontin ued(Reord er) Active Problems No known active problems Encounters Date Type Department Care Team Description 06/21/2025 External Device Data STL ABSTRACTION Provider, Abstract 06/01/2025 External Device Data STL ABSTRACTION Provider, Abstract 05/31/2025 External Device Data STL ABSTRACTION Provider, Abstract 05/25/2025 External Device Data STL ABSTRACTION Provider, Abstract 05/24/2025 External Device Data STL ABSTRACTION Provider, Abstract 04/19/2025 External Device Data STL ABSTRACTION Provider, Abstract 04/12/2025 External Device Data STL ABSTRACTION Provider, Abstract from Last 3 Months Family History Medical History Relation Name Comments Aneurysm Father Stroke Father Cancer Mother Healthy Sister 1 Healthy Sister 2 Healthy Sister 3 Relation Name Status Comments Father Mother Alive Sister 1 Alive Sister 2 Alive Sister 3 Alive Social History Tobacco Use Types Packs/Day Years Used Date Smoking Tobacco: Never Smokeless Tobacco: Never Alcohol Use Standard Drinks/Week Comments Never 0 (1 standard drink = 0.6 oz pur e alcohol) Comments No Sex and Gender Information Value Date Recorded Sex Assigned at Not on file Legal Sex Female 4:30 AM MAIL ROOM CLERK Gender Identity Not on file Sexual Orientation Not on file Last Filed Vital Signs Vital Sign Reading Time Taken Comments Blood Pressure 150/98 01/08/2019 9:43 AM CDT Pulse 69 01/08/2019 9:43 AM CDT Temperature 36.7 C (98 F) 01/08/2019 9:43 AM CDT Respiratory Rate - - Oxygen Saturation 95% 01/08/2019 9:43 AM CDT Inhaled Oxygen Concentration - - Weight 105.9 kg (233 lb 6.4 oz) 01/08/2019 9:43 AM CDT Height 167.6 cm (5' 6) 01/08/2019 9:43 AM CDT Body Mass Index 37.67 01/08/2019 9:43 AM CDT Plan of Treatment Health Maintenance Due Date Last Done Comments DTAP/TDAP/TD VACCINES (1 - Tdap) 1976 BREAST CANCER SCREENING 1997 COLORECTAL SCREENING 2002 Colorectal Cancer Screening 2002 FIT-DNA Q 3 years 2002 FIT/FOBT Q 1 year 2002 Flex Sig/CT Colonography Q 5 years 2002 PNEUMOCOCCAL VACCINE 50+ YEARS (1 of 1 - PCV) 09/09/19 08 ZOSTER VACCINE (1 of 2) 2007 OSTEOPOROSIS SCREENING 2022 INFLUENZA VACCINE (#1) 2025 RSV VACCINE (60+ or ) (1 - 1-dose 75+ series) 2032 Insurance [employer] [facility] OPEN ACCESS [facility] Address: [address] [address] RX [employer] (INTERNAL) [facility] RX [employer] Medicare Part D Care Teams Gas Blender Relationship Specialty Start Date End Date Provider, Abstract NO ADDRESS ON FILE PCP - General 12/11/18
--- OUTSIDE RECORDS SUMMARY | 2025-07-05 09:25 | XMS_ITS | Encounter Summary ---
Author Organization [facility] Address [address] [place] [address] Care Team Providers Care Programming Development Project Manager Name Role Phone Provider, Abstract Primary Care Provider Unavail able Encounter Details Date Type Department Care Team (Late st Contact Info) Description 03/02/1999 Outpatient Historical [facility] Santi Lockett Social History Tobacco Use Types Packs/Day Years Used Date Smoking Tobacco: Never Assessed Comments Unknown Sex and Gender Information Value Date Recorded Sex Assigned at Not on file Legal Sex Female 4:30 AM [employer] Gender Identity Not on file Sexual Orientation Not on file documented as of this encounter Plan of Treatment Not on file documented as of this encounter Visit Diagnoses Not on filedocumented in this encounter Care Teams Programming Development Project Manager Relationship Specialty Start Date End Date Provider, Abstract NO ADDRESS ON FILE PCP - General 12/11/18 documented as of this encounter
--- OUTSIDE RECORDS SUMMARY | 2025-07-05 09:25 | XMS_ITS | Encounter Summary ---
Author Organization [facility] Address [address] [place] [address] Care Team Providers Care Ribbon Winder Name Role Phone Provider, Abstract Primary Care Provider Unavail able Encounter Details Date Type Department Care Team (Late st Contact Info) Description 06/08/1999 Outpatient Historical [facility] Santi Lockett Social History Tobacco Use Types Packs/Day Years Used Date Smoking Tobacco: Never Assessed Comments Unknown Sex and Gender Information Value Date Recorded Sex Assigned at Not on file Legal Sex Female 4:30 AM [employer] Gender Identity Not on file Sexual Orientation Not on file documented as of this encounter Plan of Treatment Not on file documented as of this encounter Visit Diagnoses Not on filedocumented in this encounter Care Teams Ribbon Winder Relationship Specialty Start Date End Date Provider, Abstract NO ADDRESS ON FILE PCP - General 12/11/18 documented as of this encounter
--- OUTSIDE RECORDS SUMMARY | 2025-07-05 09:25 | XMS_ITS | Encounter Summary ---
Author Organization [facility] Address [address] [place] [address] Care Team Providers Care Road Sign Installer Name Role Phone Provider, Abstract Primary Care Provider Unavail able Encounter Details Date Type Department Care Team (Late st Contact Info) Description 06/19/2000 Outpatient Historical [facility] Ovidio Robles MD Social History Tobacco Use Types Packs/Day Years Used Date Smoking Tobacco: Never Assessed Comments Unknown Sex and Gender Information Value Date Recorded Sex Assigned at Not on file Legal Sex Female 4:30 AM [employer] Gender Identity Not on file Sexual Orientation Not on file documented as of this encounter Plan of Treatment Not on file documented as of this encounter Visit Diagnoses Not on filedocumented in this encounter Care Teams Road Sign Installer Relationship Specialty Start Date End Date Provider, Abstract NO ADDRESS ON FILE PCP - General 12/11/18 documented as of this encounter
== END 2025-07-05 09:04 | disposition home or self-care (01) ==
PROVIDERS: PCP Family Medicine; Visit Provider Surgery
DX: D05.11 Intraductal carcinoma in situ of right breast (principal)
CPT/HCPCS: 19281; 19282; A4648

== ENCOUNTER 2025-07-08 08:57 | Outpatient (CLI) | payer MEDICARE, SELFPAY ==
--- NOTE | 2025-07-08 09:04 | ECG_ITS ---
Test Date: 2025-07-08 09:16:21 Measurements Intervals [place] Rate: 70 P: 41 AK: 214 QRS: -6 QRSD: 91 T: 34 QT: 393 QTc: 426 Interpretive Statements SINUS RHYTHM WITH FIRST DEGREE AV BLOCK LOW QRS VOLTAGE IN PRECORDIAL LEADS BASELINE ARTIFACT- AVR, AVL, AVF, V2 BORDERLINE ECG No previous ECG available for comparison Electronically Signed On 07-08-2025 09:25:33 ASSISTANT WINEMAKER by Mike Rosario D.O.
== END 2025-07-08 08:58 | disposition home or self-care (01) ==
LOC: ANHSURGERY 09:00
PROVIDERS: PCP Family Medicine; Visit Provider Surgery
DX: E78.2 Mixed hyperlipidemia (principal); Z01.818 Encounter for other preprocedural examination
CPT/HCPCS: 93005